=== PATIENT | female | born 1970 | race Caucasian/White ===

== ENCOUNTER 2018-12-09 01:14 | Outpatient (CLI) | payer OTHER, SELFPAY ==
[2018-12-09 09:13] LABS: ALT 99 U/L (12-78); AST 57 U/L (15-37); Albumin 3.6 g/dL (3.4-5.0); Alkaline Phosphatase 72 U/L (46-116); Anion Gap 12.4 mmol/L (3-11); BUN 9 mg/dL (7-18); Bilirubin, Total 0.5 mg/dL (0.2-1.0); CO2 25.6 mmol/L (21.0-32.0); CREATININE 0.76 mg/dL (0.55-1.02); Calcium 8.7 mg/dL (8.5-10.1); Chloride 104 mmol/L (98-107); Cholesterol 197 mg/dL (50-200); Glucose 74 mg/dL (70-100); HDL Cholesterol 100 mg/dL (40-60); LDL CHOLESTEROL 77 mg/dL (<100); Potassium 4.5 mmol/L (3.5-5.1); Sodium 142 mmol/L (136-145); Triglyceride 60 mg/dL (30-150)
== END 2018-12-09 01:34 ==
DX: E78.5 Hyperlipidemia, unspecified (principal); Z00.00 Encounter for general adult medical examination without abnormal findings; J45.30 Mild persistent asthma, uncomplicated
CPT/HCPCS: 36415; 80053; 80061; 83721

== ENCOUNTER 2018-12-14 11:24 | Outpatient (REF) | payer OTHER, SELFPAY ==
--- NOTE | 2018-12-14 09:00 | PAPFT_PTH ---
PATIENT: Jackelyn Colindres LOC: [facility] U#:[id number] AGE/SX: 48/F ROOM: RE12/14/[address]: Anjelica Rico APRN : 1970 BED: DIS: 12/14/2018 SPEC #: [id number] RECD: 12/14/18 12:54 STATUS: NORIS HERRING #: [id number] RK: 12/14/18 09:[address]: Anjelica Rico DEPT: [facility] Cytology RECD BY: Lois Longoria Tissues: 1 - CX/ENDOCX FOR PAP SMEARS Procedures: PAP THIN PREP/UVM Screening HPV DNA PROBE Comments: [id number]
== END 2018-12-14 11:44 ==
LOC: LBN 11:24
DX: Z12.4 Encounter for screening for malignant neoplasm of cervix (principal); Z11.51 Encounter for screening for human papillomavirus (HPV)
CPT/HCPCS: 88142; 87624

== ENCOUNTER 2019-01-13 01:20 | Outpatient (CLI) | payer OTHER, SELFPAY ==
--- NOTE | 2019-01-13 07:30 | DI.MAMMO_ITS ---
SYMPTOM/DIAGNOSIS: SCREENING, Z12.31 MAMMOGRAM: 01/13 Mammograms were interpreted according to the usual protocol including computer analysis with CAD system, tomosynthesis and C view imaging. The breasts are of moderate density with fairly symmetrical distribution of fibroglandular tissue. No dominant mass or clumped microcalcification is identified in either breast. The current examination is compared with previous examinations including September 2017 and there has been no gross interval change in appearance in comparison with the previous studies. CONCLUSION: No specific evidence of malignancy at this time. Routine screening examinations are suggested at yearly intervals due to the family history of breast carcinoma. Category 1 breast density category B, MQSA ASSESSMENT OF FINDINGS: Negative. Category 1. Patient will receive a letter notifying them of these results. BI-RADS category B. There are scattered areas of fibroglandular density.
== END 2019-01-13 01:40 ==
DX: Z12.31 Encounter for screening mammogram for malignant neoplasm of breast; Z80.3 Family history of malignant neoplasm of breast
CPT/HCPCS: 77063; 77067

== ENCOUNTER 2020-02-06 03:11 | Outpatient (CLI) | payer OTHER, SELFPAY ==
[2020-02-06 09:02] LABS: ALT 68 U/L (14-59); AST 35 U/L (15-37); Alkaline Phosphatase 71 U/L (46-116); Anion Gap 7.9 mmol/L (3-11); BUN 16 mg/dL (7-18); Bilirubin, Total 0.5 mg/dL (0.2-1.0); CO2 27.1 mmol/L (21.0-32.0); Calcium 9.4 mg/dL (8.5-10.1); Chloride 104 mmol/L (98-107); Glucose 84 mg/dL (74-106); Potassium 4.8 mmol/L (3.5-5.1); Sodium 139 mmol/L (136-145); Total Protein 7.4 g/dL (6.4-8.2)
== END 2020-02-06 03:31 ==
DX: Z00.00 Encounter for general adult medical examination without abnormal findings (principal)
CPT/HCPCS: 36415; 80053

== ENCOUNTER 2020-02-08 00:23 | Outpatient (CLI) | payer OTHER, SELFPAY ==
--- NOTE | 2020-02-08 06:30 | DI.MAMMO_ITS ---
EXAM: MG MAMMO SCREENING CLINICAL HISTORY: screening,Z12.39 TECHNIQUE: Bilateral full field digital CC and MLO mammographic images were obtained with 3D tomosyn thesis and utilizing computer aided detection (CAD). COMPARISON: Available for comparison. FINDINGS: Masses/Architectural Distortion: There is an asymmetric density in the upper left breast seen on the mediolateral oblique view. Microcalcifications: No suspicious pleomorphic-type are seen. Skin Thickening/Nipple Retraction: None. IMPRESSION: 1. There is an asymmetric density in the upper left breast seen on the MLO view. 2. Further evaluation with a spot compression view and a left breast ultrasound is requested. BI-RADS Category 0 - Assessment Incomplete: Need additional imaging evaluation Breast Density - Category B - Scattered areas of fibroglandular density A negative radiographic report should not delay biopsy if a dominant or clinically suspicious mass is present. Up to ten percent of cancers are not identified on mammography. A negative report may reinforce clinical impression. Adenosis and dense breasts may obscure an underlying neoplasm. False positive reports average 6 to 10%. Patient will receive a letter notifying them of these results.
== END 2020-02-08 00:43 ==
DX: Z12.31 Encounter for screening mammogram for malignant neoplasm of breast (principal); R92.2 Inconclusive mammogram
CPT/HCPCS: 77063; 77067

== ENCOUNTER 2020-02-13 01:24 | Outpatient (CLI) | payer OTHER, SELFPAY ==
--- NOTE | 2020-02-13 | DI.MAMMO_ITS ---
EXAM: MG MAMMO SCREEN CALL BACK UNI CLINICAL HISTORY: F/U MAMMO, SYMMETRIC DENSITY UPPER LT BREAST TECHNIQUE: Spot compression views including C- View and tomographic imaging were performed. COMPARISON: 2009 through 2018 as well as recent exam of 08 February 2020. FINDINGS: The breasts are composed of scattered fibroglandular densities, Breast Density category B. A spot compression MLO view was performed of the superior left breast. No suspicious masses or suspicious microcalcifications are seen. No persistent abnormality is seen on the additional views performed. The findings are consistent wit h overlying fibroglandular tissue. There has been no significant change from prior exams. IMPRESSION: BIRADS Category 1, Negative Mammogram. Yearly screening mammography is recommended. Breast Density - Category B, scattered fibroglandular densities.
== END 2020-02-13 01:44 ==
DX: Z12.31 Encounter for screening mammogram for malignant neoplasm of breast (principal); R92.2 Inconclusive mammogram
CPT/HCPCS: 77063; 77067

== ENCOUNTER 2020-05-30 07:07 | Outpatient (CLI) | payer OTHER, SELFPAY ==
[2020-06-02 20:40] LABS: Patient Race White; SARS-CoV-2 RNA Undetected (Undetected); SARS-CoV-2 Specimen Source Nasal
== END 2020-05-30 07:27 ==
PROVIDERS: Nurse Practitioner Family; Visit Provider Surgery
DX: Z11.59 Encounter for screening for other viral diseases (principal); Z01.818 Encounter for other preprocedural examination
CPT/HCPCS: U0003

== ENCOUNTER 2020-06-03 09:21 | Day surgery (SDC) | payer OTHER, SELFPAY ==
[2020-06-03 09:58] VITALS: BP 125/88; PULSE 70; RESP 16; TEMP 36.3; O2SAT 98
[2020-06-03] MEDS: Lactated Ringers 1,000 ML 80 ML IV (10:36)
--- NOTE | 2020-06-03 14:04 | W.PM.DSUDISC ---
Discharge Plan Disposition Patient Disposition: HOME Condition: Good Discharge Details Reason For Visit: SCREENING Attending Provider: Brittany Metzger Primary Care Provider: Anjelica Rico Home Meds and New Rx's Prescriptions: Continued albuterol sulfate [ProAir HFA] 8.5 GM HFA aerosol inhaler 2 puff Inhalation Q4H PRN PRNQty: 1 RF: 1 Advair HFA 230-21 mcg/actuation HFA aerosol inhaler 2 puff Inhalation BID Qty: 12 RF: 3 loratadine 10 mg tablet 10 mg PO PRN PRNRF: 0 Discharge Instructions Additional Instructions: Findings:Normal colon Follow up:repeat in 10 yrs time Please call if you develop: fevers >101.5 Nausea or Vomiting Abdominal pain that is not transient DAY SURGERY UNIT POST COLONOSCOPY INSTRUCTIONS 1. Because there will be medication in your system for the next 24 hours, you may feel a little sleepy. Your coordination will be affected. Therefore: a. Do not drive or operate dangerous equipment for 24 hours. b. Do not drink alcohol beverages for 24 hours (not even beer). c. Plan to go home and rest for the day. 2. Generally there are no restrictions on your activity after a day or so has gone by, but you may feel a bit fatigued for a few days. 3 After you arrive home you may have a light meal and return to a normal diet as you can tolerate it without feeling sick to your stomach. 4. After surgery, you may feel pain or discomfort. This should be only transient, but if it persists please contact your doctor. 5. If there are any questions regarding the findings of your procedure, please feel free to contact your doctor. 6. If you are unable to contact your doctor with a problem, contact the hospital at [phone]. 7. Continue all your regular medications unless directed otherwise. I understand the above instructions and have no questions. Signature of Patient or Responsible Adult Escort Date/Time Name of Responsible Adult Escort Signature of Nurse Date/Time Activity:: no lifting over 20#'s or strenuous activity x 24 hrs Diet:: small light meals x 24 hrs Discharge Orders Discharge Orders: Discharge Order (Routine); Ordered 06/03/20 Ordered By: Brittany Metzger DS: Diagnosis Discharge Diagnosis (1) Colon cancer screening: Status: Acute
--- NOTE | 2020-06-03 14:06 | W.COLOREPORT ---
Date of service: 06/03/20 Time of Service: 14:06 Colonoscopy Report Date of procedure: 06/03/20 Pre-op diagnosis general: CRC screen Post-op diagnosis procedure note: same Surgeon: Brittany Metzger Anesthesia proc note operative: GETA Estimated blood loss (mL): 0 Pathology: none sent Complications: None Disposition: same day Prep: Miralax/Dulcolax Retraction Time: 10 mins Procedure Description: After informed consent was obtained the patient was taken to the procedure room and placed in a left decubitous position. Monitors were applied and a time out was done. The patients name, date of , procedure, allergies to medications and metal in their body was reviewed. The patient was then sedated. Once sedated and comfortable a rectal exam was done. External exam few external tags. Internal exam revealed a normal sphincter tone and no palpable masses. The scope was then introduced and retrofelexed. Hypertrophied papillae. The scope was then advanced to the cecum w/out difficulty. The TI and appendiceal orifice were identified. The prep was good. The scope was then slowly retracted over 10 minutes back into the rectum. No AVM's/polyps/diverticula present. The mucosa was pink and healthy. The scope was removed and the patient was woken up and taken back to Same day surgery in stable condition. The patient tolerated the procedure well and there were no immediate complications. Follow up: The patient should follow up in 10 years unless they develop changes in bowel habits or other new gastrointestinal complaints.
[2020-06-03 14:37] VITALS: BP 117/88; PULSE 63; RESP 16; TEMP 36.4; O2SAT 97
== END 2020-06-03 15:00 | disposition home or self-care (01) ==
PROVIDERS: Visit Provider Surgery
PROC: 0DJD8ZZ Inspection of Lower Intestinal Tract, Via Natural or Artificial Opening Endoscopic (ICD-10-PCS; CPT 45378; principal; 2020-06-03 12:15)
DX: Z12.11 Encounter for screening for malignant neoplasm of colon (principal); K64.4 Residual hemorrhoidal skin tags
CPT/HCPCS: 45378; J2001

== ENCOUNTER 2021-04-11 03:23 | Outpatient (CLI) | payer OTHER, SELFPAY ==
--- NOTE | 2021-04-11 07:15 | DI.MAMMO_ITS ---
Exam(s) MAMMO SCREENING EXAM: MAMMO SCREENING CLINICAL HISTORY: screening,Z12.39 TECHNIQUE: Bilateral full field digital CC and MLO mammographic images were obtained with 3D tomosyn thesis and utilizing computer aided detection (CAD). COMPARISON: Available for comparison. FINDINGS: Masses/Architectural Distortion: There is an asymmetric focus in the upper right breast on the MLO vi ew. Microcalcifications: No suspicious pleomorphic-type are seen. Skin Thickening/Nipple Retraction: None. IMPRESSION: 1. Focal asymmetry in the upper right breast on the MLO view. 2. This area should be further evaluated with a spot compression view. Ultrasound may be indicated a t that time. BI-RADS Category 0 - Assessment Incomplete: Need additional imaging evaluation Breast Density - Category B - Scattered areas of fibroglandular density Breast density category C or D implies that the patient has dense breast tissue. Dense breast tissue is very common and is not abnormal but dense breast tissue can make it harder to find cancer on a ma mmogram. Also, dense breast tissue may increase their breast cancer risk. This information about the result of the mammogram report was provided to the patient to raise their awareness. Use this report when you speak with the patient about their risks for breast cancer, which includes their family hist ory. At that time, you may recommend for more screening tests (Ultrasound or MRI) as they might be us eful based on their risk. A negative radiographic report should not delay biopsy if a dominant or clinically suspicious mass is present. Up to ten percent of cancers are not identified on mammography. A negative report may reinforce clinical impression. Adenosis and dense breasts may obscure an underlying neoplasm. False positive reports average 6 to 10%. Patient will receive a letter notifying them of these results.
== END 2021-04-11 03:43 ==
DX: Z12.31 Encounter for screening mammogram for malignant neoplasm of breast (principal); R92.8 Other abnormal and inconclusive findings on diagnostic imaging of breast
CPT/HCPCS: 77063; 77067

== ENCOUNTER 2021-04-25 03:47 | Outpatient (CLI) | payer OTHER, SELFPAY ==
--- NOTE | 2021-04-25 | DI.US_ITS ---
Exam(s) MG MAMMO SCREEN CALL BACK UNI US BREAST RT LIMITED EXAM: US BREAST RT LIMITED CLINICAL HISTORY: F/U MAMMO, FOCAL ASYMMETRY UPPER RT BREAST TECHNIQUE: Ultrasound performed using standard protocol. COMPARISON: US RIGHT BREAST ULTRASOUND {[id number]} from 08/14/2015 FINDINGS: Additional mammographic views of the right breast are interpreted in conjunction with right breast ul trasound. These examinations were obtained to evaluate questionable area of asymmetric density seen on MLO view of the right breast on recent mammogram. Additional mammographic views fail to show a di screte mass. Breast ultrasound shows no evidence of mass. There is an incidental 5 millimeter in di ameter simple cyst in the 10 o'clock position about 2 cm from the nipple. IMPRESSION: No specific evidence of malignancy at this time. Follow-up unilateral right breast mammogram recomme nded in 6 months. BI-RADS Cat 3 - 6 month - Probably Benign Finding: Recommend follow-up imaging in 6 months Breast Density - Category B - Scattered areas of fibroglandular density DATA REPOSITORY:
== END 2021-04-25 04:07 ==
DX: Z12.31 Encounter for screening mammogram for malignant neoplasm of breast (principal); R92.8 Other abnormal and inconclusive findings on diagnostic imaging of breast; N60.01 Solitary cyst of right breast
CPT/HCPCS: 76642; 77063; 77067

== ENCOUNTER 2021-05-29 02:26 | Outpatient (CLI) | payer OTHER, SELFPAY ==
[2021-05-29 09:32] LABS: BUN 14 mg/dL (7-18); CREATININE 0.8 mg/dL (0.55-1.02); Calcium 9.1 mg/dL (8.5-10.1); Glucose 88 mg/dL (74-106); Total Protein 7.3 g/dL (6.4-8.2)
[2021-05-29 09:33] LABS: ALT 54 U/L (14-59); AST 27 U/L (15-37); Albumin 3.9 g/dL (3.4-5.0); Alkaline Phosphatase 74 U/L (46-116); Anion Gap 7.1 mmol/L (3-11); Bilirubin, Total 0.6 mg/dL (0.2-1.0); CO2 30.9 mmol/L (21.0-32.0); Chloride 106 mmol/L (98-107); Potassium 4.6 mmol/L (3.5-5.1); Sodium 144 mmol/L (136-145)
== END 2021-05-29 02:27 | disposition home or self-care (01) ==
LOC: LBO 02:26
DX: Z00.00 Encounter for general adult medical examination without abnormal findings (principal)
CPT/HCPCS: 36415; 80053

== ENCOUNTER 2021-10-30 01:46 | Outpatient (CLI) | payer OTHER, SELFPAY ==
--- NOTE | 2021-10-30 14:20 | DI.MAMMO_ITS ---
Exam(s) MG MAMMO DIAGNOSTIC UNI EXAM: MG MAMMO DIAGNOSTIC UNI CLINICAL HISTORY: F/U ABNL MAMMO, 6 MO F/U,R92.8 TECHNIQUE: Mammograms were interpreted according to the usual protocol including computer analysis w [employer] CAD system, tomosynthesis and C-view imaging. COMPARISON: FINDINGS: Right breast mammogram was obtained to follow area of focal asymmetric density seen in the right [address] on prior examination of March 2021. No change in appearance of this area. No new mass or clu mped microcalcification seen. IMPRESSION: No specific evidence of malignancy at this time. I would suggest that routine screening examination s resume with a bilateral mammogram in 6 months. BI-RADS Category 3 - 6 month - Probably Benign Finding: Recommend follow-up mammography in 6 months Breast Density - Category B - Scattered areas of fibroglandular density
== END 2021-10-30 02:06 ==
DX: R92.8 Other abnormal and inconclusive findings on diagnostic imaging of breast (principal)
CPT/HCPCS: 77061; 77065; G0279

== ENCOUNTER 2022-01-15 10:07 | Outpatient (REF) | payer OTHER, SELFPAY ==
--- NOTE | 2022-01-15 08:20 | PAPFT_PTH ---
PATIENT: Jackelyn Colindres LOC: [facility] U#:[id number] AGE/SX: 51/F ROOM: RE01/15/[address]: Anjelica Rico APRN : 1970 BED: DIS: 01/15/2022 SPEC #: [id number] RECD: 01/15/22 13:03 STATUS: NORIS REАлександр #: [id number] RK: 01/15/22 08:[address]: Anjelica Rico DEPT: [facility] Cytology RECD BY: Lois Longoria Tissues: 1 - CX/ENDOCX FOR PAP SMEARS Procedures: PAP THIN PREP/UVM Screening HPV DNA PROBE Comments: [id number]
== END 2022-01-15 10:08 | disposition home or self-care (01) ==
LOC: LBN 10:07
DX: Z11.51 Encounter for screening for human papillomavirus (HPV) (principal)
CPT/HCPCS: 88142; 87624

== ENCOUNTER 2022-03-05 03:49 | Outpatient (CLI) | payer OTHER, SELFPAY ==
[2022-03-05 08:20] LABS: ALT 62 U/L (14-59); AST 33 U/L (15-37); Albumin 3.8 g/dL (3.4-5.0); Alkaline Phosphatase 68 U/L (46-116); Anion Gap 7.7 mmol/L (3-11); BUN 9 mg/dL (7-18); Bilirubin, Total 0.4 mg/dL (0.2-1.0); CO2 30.3 mmol/L (21.0-32.0); CREATININE 0.7 mg/dL (0.55-1.02); Calculated LDL 126 mg/dL (<100); Chloride 106 mmol/L (98-107); Cholesterol 242 mg/dL (<200); Glucose 86 mg/dL (74-106); HDL Cholesterol 96 mg/dL (40-60); Potassium 4.4 mmol/L (3.5-5.1); Sodium 144 mmol/L (136-145); Total Protein 7.9 g/dL (6.4-8.2); Triglyceride 100 mg/dL (<150)
== END 2022-03-05 03:50 | disposition home or self-care (01) ==
LOC: LBO 03:49
DX: Z00.00 Encounter for general adult medical examination without abnormal findings (principal); E78.5 Hyperlipidemia, unspecified
CPT/HCPCS: 36415; 80053; 80061

== ENCOUNTER → 2022-04-30 01:52 | Outpatient (CLI) | payer OTHER, SELFPAY ==
--- NOTE | 2022-04-30 15:19 | DI.MAMMO_ITS ---
Exam(s) MAMMO SCREENING EXAM: MAMMO SCREENING CLINICAL HISTORY: screening Z12.39 TECHNIQUE: Bilateral full field digital CC and MLO mammographic images were obtained with 3D tomosyn thesis and utilizing computer aided detection (CAD). COMPARISON: Available for comparison. FINDINGS: Masses/Architectural Distortion: None seen. Microcalcifications: No suspicious pleomorphic-type are seen. Skin Thickening/Nipple Retraction: None. IMPRESSION: 1. No significant interval change with no specific features of malignancy noted. 2. Unless there is more urgent need, screening mammography is recommended, as per [place] [employer] guidelines. BI-RADS Category 1 - Negative Breast Density - Category B - Scattered areas of fibroglandular density Breast density category C or D implies that the patient has dense breast tissue. Dense breast tissue is very common and is not abnormal but dense breast tissue can make it harder to find cancer on a ma mmogram. Also, dense breast tissue may increase their breast cancer risk. This information about the result of the mammogram report was provided to the patient to raise their awareness. Use this report when you speak with the patient about their risks for breast cancer, which includes their family hist ory. At that time, you may recommend for more screening tests (Ultrasound or MRI) as they might be us eful based on their risk. A negative radiographic report should not delay biopsy if a dominant or clinically suspicious mass is present. Up to ten percent of cancers are not identified on mammography. A negative report may reinforce clinical impression. Adenosis and dense breasts may obscure an underlying neoplasm. False positive reports average 6 to 10%. Patient will receive a letter notifying them of these results.
== END ==
DX: Z12.31 Encounter for screening mammogram for malignant neoplasm of breast (principal)
CPT/HCPCS: 77063; 77067

== ENCOUNTER 2023-03-09 04:30 | Outpatient (CLI) | payer OTHER, SELFPAY ==
[2023-03-09 08:36] LABS: Anion Gap 4.7 mmol/L (3-11); BUN 11 mg/dL (7-18); CO2 31.3 mmol/L (21.0-32.0); CREATININE 0.8 mg/dL (0.55-1.02); Calculated LDL 144 mg/dL (<100); Chloride 102 mmol/L (98-107); Cholesterol 255 mg/dL (<200); Estimated GFR 88.05 (mL/min/1.73m2); Glucose 92 mg/dL (74-106); HDL Cholesterol 98 mg/dL (40-60); Potassium 4.4 mmol/L (3.5-5.1); Sodium 138 mmol/L (136-145); Triglyceride 69 mg/dL (<150)
== END 2023-03-09 04:31 | disposition home or self-care (01) ==
LOC: LBO 04:30
PROVIDERS: PCP Nurse Practitioner Adult Health; Visit Provider Nurse Practitioner Adult Health
DX: Z13.220 Encounter for screening for lipoid disorders (principal); Z13.1 Encounter for screening for diabetes mellitus
CPT/HCPCS: 36415; 80048; 80061

== ENCOUNTER → 2023-05-27 01:13 | Outpatient (CLI) | payer OTHER, SELFPAY ==
--- NOTE | 2023-05-27 08:45 | DI.MAMMO_ITS ---
Exam(s) MAMMO SCREENING EXAM: MAMMO SCREENING CLINICAL HISTORY: screening Z12.39 FOR BREAST CANCER. TECHNIQUE: Bilateral full field digital CC and MLO mammographic images were obtained with 3D tomosyn thesis and utilizing computer aided detection (CAD). COMPARISON: Prior mammograms were reviewed. FINDINGS: There has been no significant change in the appearance and distribution of the fibroglandular tissue. Nodular density in the right breast is unchanged from 2014 Few benign-appearing intramammary lymph nodes are also again noted. There are no new spiculated masses nor malignant appearing microcalcification groups. There is no significant architectural distortion nor skin thickening-retraction. IMPRESSION: Stable benign-appearing findings. No radiographic evidence of malignancy. BI-RADS Category 2 - Benign Findings Breast Density - Category B - Scattered areas of fibroglandular density Breast density Category C or D implies that the patient has dense breast tissue. Dense breast tissue can make it harder to find cancer on a mammogram. Dense breast tissue is also associated with an incr eased risk of breast cancer. This information about the result of the mammogram report was provided to the patient to raise their awareness. Use this report when you speak with the patient about their risks for breast cancer, which includes their family history. At that time, you may recommend additional screening tests (Ultrasoun d or MRI) as these tests may add significant information. A negative radiographic report should not delay biopsy if a dominant or clinically suspicious mass is present. Up to ten percent of cancers are not identified on mammography. A negative report may reinforce clinical impression. Adenosis and dense breasts may obscure an underlying neoplasm. False positive reports average 6 to 10%. Patient will receive a letter notifying them of these results.
== END ==
PROVIDERS: PCP Nurse Practitioner Adult Health; Visit Provider Nurse Practitioner Adult Health
DX: Z12.31 Encounter for screening mammogram for malignant neoplasm of breast (principal); R92.323 Mammographic fibroglandular density, bilateral breasts
CPT/HCPCS: 77063; 77067

== ENCOUNTER 2023-09-22 15:06 | Outpatient (REF) | payer OTHER, SELFPAY ==
--- NOTE | 2023-09-22 13:00 | ENDOMET_PTH ---
PATIENT: Jackelyn Colindres LOC: N U#:[id number] AGE/SX: 53/F ROOM: RE09/22/[address]: Chelle Jordan DO : 1970 BED: DIS: 09/22/2023 SPEC #: [id number] RECD: 09/22/23 18:28 STATUS: NORIS REQ #: [id number] RK: 09/22/23 13:[address]: Chelle Jordan DEPT: Surgical Specimen RECD BY: Lois Longoria ENTERED: 09/22/23 18:28 SP TYPE: Endomet OTHR DR: Eve Jacosb APRN Tissues: 1 - ENDOMETRIUM BX/KEKE Procedures: GROSS AND MICRO LEVEL 4 Comments: [id number]
== END 2023-09-22 15:07 | disposition home or self-care (01) ==
LOC: LBN 15:06
PROVIDERS: PCP Nurse Practitioner Adult Health; Visit Provider Obstetrics & Gynecology
DX: N93.8 Other specified abnormal uterine and vaginal bleeding (principal)
CPT/HCPCS: 88305

== ENCOUNTER 2024-04-24 16:56 | Outpatient (REF) | payer OTHER, SELFPAY | END 2024-04-24 16:57 | disposition home or self-care (01) | LOC: LBN 16:56 | PROVIDERS: PCP Nurse Practitioner Adult Health; Visit Provider Nurse Practitioner Adult Health | DX: R30.0 Dysuria (principal); R82.89 Other abnormal findings on cytological and histological examination of urine | CPT/HCPCS: 87086 ==

== ENCOUNTER 2024-06-22 02:10 | Outpatient (CLI) | payer OTHER, SELFPAY ==
--- NOTE | 2024-06-22 08:10 | DI.MAMMO_ITS ---
Exam(s) MAMMO SCREENING EXAM: MAMMO SCREENING CLINICAL HISTORY: screening,z12.39 TECHNIQUE: Mammograms were interpreted according to the usual protocol including computer analysis w [employer] CAD system, tomosynthesis and C-view imaging. COMPARISON: No exams were available for comparison FINDINGS: The breasts are composed of scattered fibroglandular densities, Breast Density category B. No suspicious masses or suspicious microcalcifications are seen. Stable small nodule in the medial r ight breast. No skin thickening or abnormal axillary lymph nodes are seen. There has been no significant change from prior exams. IMPRESSION: BI-RADS Category 2 - Benign Findings Yearly screening mammography is recommended. Breast Density - Category B, scattered fibroglandular densities. A negative radiographic report should not delay biopsy if a dominant or clinically suspicious mass is present. Up to ten percent of cancers are not identified on mammography. A negative report may reinforce clinical impression. Adenosis and dense breasts may obscure an underlying neoplasm. False positive reports average 6 to 10%. Patient will receive a letter notifying them of these results.
== END 2024-06-22 02:30 ==
LOC: DI 02:10
PROVIDERS: PCP Nurse Practitioner Adult Health; Visit Provider Obstetrics & Gynecology
DX: Z12.31 Encounter for screening mammogram for malignant neoplasm of breast (principal); R92.323 Mammographic fibroglandular density, bilateral breasts; D24.1 Benign neoplasm of right breast
CPT/HCPCS: 77063; 77067

== ENCOUNTER 2024-08-15 09:39 | Outpatient (REF) | payer OTHER, SELFPAY ==
--- NOTE | 2024-08-15 09:35 | SKI_PTH ---
PATIENT: Jackelyn Colindres LOC: [facility] U#:[id number] AGE/SX: 53/F ROOM: RE08/15/[address]: Goyo Bailon MD : 1970 BED: DIS: 08/15/2024 SPEC #: [id number] RECD: 08/15/24 12:23 STATUS: NORIS REАлександр #: [id number] RK: 08/15/24 09:[address]: Goyo Bailon DEPT: Surgical Specimen RECD BY: Lois Longoria ENTERED: 08/15/24 12:23 SP TYPE: BOY WILSON DR: Eve Jacobs APRN Tissues: 1 - SKIN BIOPSY(SHAVE/PUNCH) Procedures: SKIN LEVEL 4 Comments: [id number]
== END 2024-08-15 09:40 | disposition home or self-care (01) ==
LOC: LBN 09:39
PROVIDERS: PCP Nurse Practitioner Adult Health; Visit Provider Surgery
DX: L43.9 Lichen planus, unspecified (principal); Z85.820 Personal history of malignant melanoma of skin; L98.9 Disorder of the skin and subcutaneous tissue, unspecified
CPT/HCPCS: 88305

== ENCOUNTER → 2025-06-28 01:11 | Outpatient (CLI) | payer OTHER, SELFPAY ==
--- NOTE | 2025-06-28 06:45 | DI.MAMMO_ITS ---
Exam(s) MAMMO SCREENING EXAM: MAMMO SCREENING CLINICAL HISTORY: screening,z12.39 TECHNIQUE: Mammograms were interpreted according to the usual protocol including computer analysis with CAD system, tomosynthesis and C-view imaging. COMPARISON: 2015 through 2023 FINDINGS: The breasts are composed of scattered fibroglandular densities, Breast Density category B. No suspicious masses or suspicious microcalcifications are seen. No skin thickening or abnormal axillary lymph nodes are seen. There has been no significant change from prior exams. IMPRESSION: BI-RADS Category 1, Negative mammogram Yearly screening mammography is recommended. Breast Density - Category B - There are scattered areas of fibroglandular density. Breast density Category C or D implies that the patient has dense breast tissue. Dense breast tissue can make it harder to find cancer on a mammogram. Dense breast tissue is also associated with an increased risk of breast cancer. This information about the result of the mammogram report was provided to the patient to raise their awareness. Use this report when you speak with the patient about their risks for breast cancer, which includes their family history. At that time, you may recommend additional screening tests (Ultrasound or MRI) as these tests may add significant information. A negative radiographic report should not delay biopsy if a dominant or clinically suspicious mass is present. Up to ten percent of cancers are not identified on mammography. A negative report may reinforce clinical impression. Adenosis and dense breasts may obscure an underlying neoplasm. False positive reports average 6 to 10%. Patient will receive a letter notifying them of these results.
== END ==
LOC: DI 01:11
PROVIDERS: PCP Nurse Practitioner Adult Health; Visit Provider Nurse Practitioner Adult Health
DX: Z12.31 Encounter for screening mammogram for malignant neoplasm of breast (principal)
CPT/HCPCS: 77063; 77067